=== PATIENT | female | born 1930 | race Caucasian/White ===

== ENCOUNTER 2020-11-18 11:48 | Emergency (ER) | payer OTHER ==
[~2020-11-18] VITALS: Ht 149.9 cm; Wt 50.8 kg
--- NOTE | 2020-11-18 12:07 | NUR ---
REECE TO ER BED 12. AAOX4. NOT IN RESP DISTRESS. BROUGHT IN FOR SYNCOPAL EPISODE. PER PT SHE WAS WALKING BACK TO HER HOME AND NEXT THING SHE KNOWS SHE WAS ON THE FLOOR. YOLANDA SAW THE PT ON THE FLOOR AND CALLED 911. PT OBTAINED A LACERATION ON THE BACK OF HER HEAD. MIN BLEEDING. PT REPORTS NO BLOOD THINNER USE. PT PLACED ON MONITOR. PT HAD AN EPISODE OF VOMMITING. AWAITING MD FOR EVAL. IV LINE ALRADY ESTABLISHED ON L AC 18G BY EMS
[2020-11-18] MEDS ORDERED: ONDANSETRON HCL/PF 4 MG/2 ML VIAL ONE (12:17)
[2020-11-18] MEDS ORDERED: ONDANSETRON HCL/PF 4 MG/2 ML VIAL IV ONE (12:30)
[2020-11-18 13:21] LABS: BASOPHILS # (AUTO) 0.1 K/uL (0.0-0.2); BASOPHILS % (AUTO) 0.4 % (0.0-2.0); EOSINOPHILS % (AUTO) 0.1 % (0.0-6.0); HEMATOCRIT 37 % (33-45); HEMOGLOBIN 12.4 g/dL (11.5-14.8); LYMPHOCYTES # (AUTO) 1.4 K/uL (0.8-4.8); MEAN CORPUSCULAR HGB CONC 33 g/dl (31.0-36.0); MEAN CORPUSCULAR VOLUME 99 fL (82-100); MONOCYTES # (AUTO) 1.2 K/uL (0.1-1.30); MONOCYTES % (AUTO) 6.2 % (2.0-12.0); NEUTROPHILS # (AUTO) 16.8 K/uL (1.8-8.9); NEUTROPHILS % (AUTO) 86.3 % (43.0-81.0); PLATELET COUNT (AUTO) 220 K/uL (150-450); RED BLOOD CELL COUNT(AUTO) 3.79 MIL/uL (4.0-5.2); WHITE BLOOD COUNT (AUTO) 19.5 K/uL (4.3-11.0)
[2020-11-18] MEDS ORDERED: LIDOCAINE HCL/MPF 1% 30 ML VIAL IJ ONE (13:22)
[2020-11-18 13:35] LABS: ALANINE AMINOTRANSFERASE 24 U/L (12-78); ALBUMIN 3.9 g/dL (3.4-5.0); ALKALINE PHOSPHATASE 77 U/L (46-116); ASPARTATE AMINOTRANSFERASE 21 U/L (15-37); BILIRUBIN,DIRECT 0.1 mg/dL (0.0-0.2); BILIRUBIN,TOTAL 0.5 mg/dL (0.2-1.0); CALCIUM, SERUM 9.1 mg/dL (8.5-10.1); CARBON DIOXIDE 27 mmol/L (21-32); CHLORIDE 100 mmol/L (98-107); CREATININE 0.8 mg/dL (0.6-1.3); GLUCOSE 183 mg/dL (74-106); SODIUM SERUM 136 mmol/L (136-145); TOTAL PROTEIN, SERUM 7.3 g/dL (6.4-8.2); UREA NITROGEN, BLOOD 17 mg/dL (7-18)
--- NOTE | 2020-11-18 13:44 | NUR ---
PHLEB WAS AT THE BEDSIDE FOR BLOOD CULTURE DRAW. PT IS IN THE RESTROOM FOR URINE COLLECTION.
--- NOTE | 2020-11-18 13:47 | NUR ---
[facility] CALLED [phone]
--- NOTE | 2020-11-18 13:59 | NUR ---
MD AWARE OF LACTIC ACID 2.6, VERBAL ORDER RECEIVED TO GIVE 1 L NS IV BOLUS. MD IS AT BEDSIDE DOING SUTURE
[2020-11-18] MEDS ORDERED: IV NS 0.9% 500 ML BAG IV ONE (14:00)
--- NOTE | 2020-11-18 14:26 | NUR ---
COVID SWAB DONE AND URINE COLLECTED VIA IN AND OUT CATH WITH STRICT STERILE TECHNIQUE DURING PROCEDURE. SPECIMENS ARE SENT TO LAB
[2020-11-18] MEDS ORDERED: IV NS 0.9% 1,000 ML BAG IV ONE (14:30)
[2020-11-18] MEDS ORDERED: PIPERACILLIN /TAZOBACTAM 3.375 G in IV D5W 50 ML IV ONE (14:30)
--- NOTE | 2020-11-18 14:33 | NUR ---
CALLED [facility] DR. GOMEZ HAS BEEN ASSIGNED TO THIS CASE, AWAITING A CALL BACK.
[2020-11-18] MEDS ORDERED: PIPERACILLIN /TAZOBACTAM 3.375 G VIAL IV ONE (14:42)
[2020-11-18 14:48] LABS: BILIRUBIN,URINE Negative (NEGATIVE); COLOR,URINE YELLOW (YELLOW); LEUKOCYTE ESTERASE ,URINE Trace (NEGATIVE); NITRITE, URINE Negative (NEGATIVE); PH,URINE 5.5 (5.0-8.0); PROTEIN,URINE Negative (NEGATIVE); UGLUCOSE Negative (NEGATIVE); UROBILINOGEN,URINE 0.2 EU/dL (0.2)
[2020-11-18 14:49] LABS: BACTERIA,URINE Few /HPF (None Seen); RBC,URINE NONE SEEN /HPF (0-2); SQUAMOUS EPITHELIAL CELL,UR Few /HPF (None Seen)
[2020-11-18] MEDS ORDERED: ALEN70TA80 PO (14:54)
[2020-11-18] MEDS ORDERED: ACID1TAB12 PO (14:54)
[2020-11-18] MEDS ORDERED: LISI-768 PO (14:54)
[2020-11-18] MEDS ORDERED: BLOO-668 IN (14:54)
[2020-11-18] MEDS ORDERED: CALC1TAB30 PO (14:54)
[2020-11-18] MEDS ORDERED: TURM500C9 PO (14:54)
[2020-11-18] MEDS ORDERED: ATOR40TA PO (14:54)
[2020-11-18] MEDS ORDERED: POLY15DR40 EACHEYE (14:54)
[2020-11-18] MEDS ORDERED: GLIP5TAB13 PO ×2 (14:54)
[2020-11-18] MEDS ORDERED: MELA3TAB41 PO (14:54)
[2020-11-18] MEDS ORDERED: NIFE-35 PO (14:54)
[2020-11-18] MEDS ORDERED: ACET-2605 PO (14:54)
--- NOTE | 2020-11-18 14:54 | NUR ---
PT IV ON L AC 18G, NOTED INFILTRATED. IV DC'D. IV LINE ESTABLISHED ON R WRIST 20G.
[2020-11-18] MEDS ORDERED: METRONIDAZOLE 500MG/ NS 100ML 500 MG in PREMIX 1 EA IV ONE (15:00)
[2020-11-18] MEDS ORDERED: CEFEPIME 2 GM in IV D5W 100 ML IV ONE (15:00)
--- NOTE | 2020-11-18 16:45 | NUR ---
LAB CALLED LACTIC ACID 2.6 KATT GAMOBA.
--- NOTE | 2020-11-18 17:11 | NUR ---
SPOKE WITH ASHANTI FOR PT TRANSPORT TO [facility] UNDER THE CARE OF Nadia TANG. PT IS GOING TO BE PICKED UP AT 1800 BY [facility].
--- NOTE | 2020-11-18 17:12 | NUR ---
[facility] - [phone]
--- NOTE | 2020-11-18 17:26 | NUR ---
REPORT GIVEN TO SANDRO, CHARGE NURSE FOR JACKIE AT THE [facility].
[2020-11-18] MEDS ORDERED: ACETAMINOPHEN 325 MG TABLET PO ONE (17:30)
[2020-11-18] MEDS ORDERED: ACETAMINOPHEN 325 MG TABLET ONE (17:32)
[2020-11-18 18:05] VITALS: BP 127/54
--- NOTE | 2020-11-18 18:09 | NUR ---
[facility] @ BEDSIDE FOR TRANSPORT TO [facility]. REPORT GIVEN TO DANIEL BOILER FIREMAN.
--- NOTE | 2020-11-18 18:20 | NUR ---
PT LEFT ON GURNEY WITH 2 AMBULANCE STAFF.
== END 2020-11-18 18:21 | disposition short-term general hospital (02) ==
LOC: ER 11:52
DX: R55 Syncope and collapse (principal); S01.01XA Laceration without foreign body of scalp, initial encounter; W18.39XA Other fall on same level, initial encounter; Y93.89 Activity, other specified; I44.0 Atrioventricular block, first degree; E87.2 Acidosis; R94.31 Abnormal electrocardiogram [ECG] [EKG]; G93.89 Other specified disorders of brain; Z20.822 Contact with and (suspected) exposure to COVID-19
CPT/HCPCS: 12002; 36415; 70450; 71045; 72125; 80048; 80076; 81001; 82962 ×2; 83605 ×2; 84484; 85025; 85730; 87040 ×2; 87086; 87186; 87426; 93005; 96361; 96365; 96367; 96374; 99291; A4216; A6403; C9803; J0692; J2405; J3490; J7030 ×2; J7060; J2543